=== PATIENT | female | born 1995 | race Caucasian/White ===

== ENCOUNTER 2016-09-25 07:45 | Inpatient (IN) | payer MEDICAID ==
[2016-09-25 11:13] LABS: ABSOLUTE EOSINOPHILS # (AUTO) 0.2 10^3/uL (0.0-0.6); ABSOLUTE LYMPHOCYTES (AUTO) 2.2 10^3/uL (0.5-4.7); ABSOLUTE MONOCYTES (AUTO) 1.1 10^3/uL (0.1-1.4); ABSOLUTE NEUT (AUTO) 7.7 10^3/uL (1.7-8.2); BASOPHILS % (AUTO) 0.4 % (0-2); EOSINOPHILS % (AUTO) 1.5 % (0-6); HEMATOCRIT 33.6 % (36.0-47.0); HEMOGLOBIN 11.7 g/dL (12.0-15.5); HGB HCT DIFFERENCE 1.5; LYMPHOCYTES % (AUTO) 19.7 % (13-45); MEAN CORPUSCULAR HEMOGLOBIN 29.2 pg (27.0-33.4); MEAN CORPUSCULAR HGB CONC 34.7 g/dL (32.0-36.0); MEAN CORPUSCULAR VOLUME 84 fl (80-97); MONOCYTES % (AUTO) 9.8 % (3-13); RED BLOOD COUNT 3.99 10^6/uL (3.72-5.28); RED CELL DISTRIBUTION WIDTH 14.3 % (11.5-14.0); SEGMENTED NEUTROPHILS % (AUTO) 68.6 % (42-78); WHITE BLOOD COUNT 11.2 10^3/uL (4.0-10.5)
[2016-09-25 11:21] LABS: APPEARANCE,URINE SLIGHTLY-CLOUDY; BILIRUBIN,URINE NEGATIVE (NEGATIVE); GLUCOSE, URINE NEGATIVE (NEGATIVE); KETONES,URINE NEGATIVE (NEGATIVE); LEUKOCYTE ESTERASE,URINE LARGE (NEGATIVE); NITRITE,URINE NEGATIVE (NEGATIVE); PROTEIN,URINE NEGATIVE (NEGATIVE); URINE SPECIFIC GRAVITY 1.018; UROBILINOGEN,URINE NEGATIVE mg/dL (<2.0)
[2016-09-25 11:32] LABS: URINE BARBITURATES SCREEN NEGATIVE; URINE METHADONE SCREEN NEGATIVE; URINE OPIATES LOW NEGATIVE; URINE PHENCYCLIDINE SCREEN NEGATIVE
[2016-09-30] MEDS ORDERED: LIDOCAINE 0.5% INJ-PF (5 MG/ML) 50 ML SDV SUBCUT PRN (05:00)
[2016-09-30] MEDS ORDERED: RINGERS SOLUTION,LACTATED 1,000 ML IV PRN ×2 (05:00→13:18)
[2016-09-30] MEDS ORDERED: RINGERS SOLUTION,LACTATED 1,500 ML IV PRN (05:00)
[2016-09-30] MEDS ORDERED: CEFAZOLIN 1 GM/D5W RTU 1 GM/50 ML RTUPB IV PRN (05:00)
[2016-09-30] MEDS ORDERED: CEFAZOLIN 1 GM/D5W RTU 0 GM/0 ML RTUPB IV ONE (08:01)
[2016-09-30] MEDS ORDERED: CLINDAMYCIN 900 MG/D5W RTU 50 ML IV PRN (08:40)
[2016-09-30] MEDS ORDERED: MIDAZOLAM 2 MG/2 ML INJ ONE (09:06)
[2016-09-30] MEDS ORDERED: EPHEDRINE SULFATE INJ 50 MG/1 ML AMPULE ONE (09:06)
[2016-09-30] MEDS ORDERED: OXYTOCIN/NORMAL SALINE 20 UNIT/1,000 ML RTUINJ ONE (09:06)
[2016-09-30] MEDS ORDERED: OXYTOCIN 10 UNIT/ML VIAL ONE (09:06)
[2016-09-30] MEDS ORDERED: FENTANYL CITRATE INJ/PF 100 MCG/2 ML AMPUL IV PRN ×3 (09:50)
[2016-09-30] MEDS ORDERED: MEPERIDINE HCL/PF INJ 25 MG/1 ML DISP.SYRIN IV PRN (09:50)
[2016-09-30] MEDS ORDERED: DIPHENHYDRAMINE HCL 50 MG/ML VIAL IV PRN (09:50)
[2016-09-30] MEDS ORDERED: OXYCODONE-ACETAMINOPHEN 5-325 MG TABLET PO PRN ×3 (09:50→13:18)
[2016-09-30] MEDS ORDERED: MORPHINE SULFATE 10 MG/ML INJ IV PRN (09:50)
[2016-09-30] MEDS ORDERED: PROMETHAZINE HCL INJ 25 MG/1 ML VIAL IV PRN ×3 (09:50→13:18)
[2016-09-30] MEDS ORDERED: ONDANSETRON HCL INJ/PF 4 MG/2 ML SDV IV PRN (09:50)
[2016-09-30] MEDS ORDERED: INFLUENZA ADLT QUAD (36MOS+) 2016-17 VAC 0.5 ML SYR IM PRN (10:08)
[2016-09-30] MEDS: FENTANYL CITRATE INJ/PF 100 MCG/2 ML AMPUL ONE ×2 (11:12→11:30)
[2016-09-30] MEDS ORDERED: KETOROLAC TROMETHAMINE INJ/PF 30 MG/1 ML SDV ONE (12:10)
[2016-09-30] MEDS ORDERED: ACETAMINOPHEN 100 ML IV ONE (12:14)
[2016-09-30] MEDS ORDERED: HYDROMORPHONE HCL INJ/PF 2 MG/ML AMPULE IV PRN (13:18)
[2016-09-30] MEDS ORDERED: OXYTOCIN/NORMAL SALINE 1,000 ML IV PRN (13:18)
[2016-09-30] MEDS ORDERED: SIMETHICONE 80 MG TAB.CHEW PO PRN (13:18)
[2016-09-30] MEDS ORDERED: DIPH/PERTUSS(ACELL)/TETANUS VAC/PF 0.5 ML SYR (>=10YO) IM PRN (13:18)
[2016-09-30] MEDS ORDERED: MEASLES,MUMPS&RUBELLA VACC/PF 0.5 ML VIAL SUBCUT PRN (13:18)
[2016-09-30] MEDS ORDERED: ACETAMINOPHEN 325 MG TABLET PO PRN (13:18)
[2016-09-30] MEDS ORDERED: OXYCODONE-ACETAMINOPHEN 5-325 MG TABLET ONE (13:34)
[2016-09-30] MEDS ORDERED: KETOROLAC TROMETHAMINE INJ/PF 30 MG/1 ML SDV IV SCH ×2 (14:00→22:00)
[2016-09-30] MEDS ORDERED: KETOROLAC TROMETHAMINE 60 MG/2 ML SDV ONE (15:01)
[2016-09-30] MEDS ORDERED: ONDANSETRON HCL INJ/PF 4 MG/2 ML SDV ONE ×2 (15:01)
[2016-09-30] MEDS: DOCUSATE SODIUM 100 MG CAPSULE PO SCH (17:49)
[2016-09-30] MEDS: OXYCODONE-ACETAMINOPHEN 5-325 MG TABLET PO PRN (20:26)
[2016-10-01] MEDS: IBUPROFEN 800 MG TABLET PO SCH ×4 (00:03→17:15)
[2016-10-01] MEDS: OXYCODONE-ACETAMINOPHEN 5-325 MG TABLET PO PRN (02:22)
[2016-10-01 07:56] LABS: HEMATOCRIT 29.9 % (36.0-47.0); HEMOGLOBIN 10.2 g/dL (12.0-15.5); HGB HCT DIFFERENCE 0.7; MEAN CORPUSCULAR HEMOGLOBIN 28.9 pg (27.0-33.4); MEAN CORPUSCULAR HGB CONC 34.2 g/dL (32.0-36.0); MEAN CORPUSCULAR VOLUME 84 fl (80-97); RED BLOOD COUNT 3.55 10^6/uL (3.72-5.28); RED CELL DISTRIBUTION WIDTH 14.5 % (11.5-14.0); WHITE BLOOD COUNT 12.7 10^3/uL (4.0-10.5)
[2016-10-01] MEDS: DOCUSATE SODIUM 100 MG CAPSULE PO SCH ×2 (10:14→17:16)
[2016-10-01] MEDS: PRENATAL VITAMIN W-O CA NO5/FE FUMARATE/FA CAPSULE PO SCH (10:14)
--- NOTE | 2016-10-01 16:09 | PDOC PROGRESS REPORT ---
Subjective-OB Subjective: Post Delivery Day: 21 year old. Denies any needs at this time pt sitting up reports well incision dry and intact abdomen soft and nontender pt reports swelling around incision- encouraged pt to wear a binder and increase ambulation +flatus - bm learning verbalized anticipate d/c in AM Physical Exam (OB) Vital Signs: Temp Pulse Resp BP Pulse Ox 98.1 F 79 16 121/66 99 10/01/16 15:50 10/01/16 15:50 10/01/16 15:50 10/01/16 15:50 10/01/16 15:50 Intake & Output 09/30/16 10/01/16 10/02/16 06:59 06:59 06:59 Intake Total 06720 1100 Output Total 2235 Balance 42298 1100 - Dressing Removed: Yes - medipore dressing removed, linn, no redness, drainage or swelling Incision: Well Approximated Closure Type: Surgical Glue - Bilateral Tubal Ligation Dressing Removed: No - medipore dressing intact - Lochia Lochia Amount: Scant < 10 ml Lochia Color: Rubra/Red - Abdomen Description: Tender, Soft Hernia Present: No Fundal Description: Firm, Midline Fundal Height: u/u - u/2 Objective-Diagnostic Laboratory: 10/01/16 07:28 10/01/16 07:28 WBC 12.7 H RBC 3.55 L Hgb 10.2 L Hct 29.9 L MCV 84 MCH 28.9 MCHC 34.2 RDW 14.5 H Plt Count 209
[2016-10-02] MEDS: IBUPROFEN 800 MG TABLET PO SCH ×3 (00:14→11:10)
--- NOTE | 2016-10-02 09:32 | PDOC PROGRESS REPORT ---
Subjective-OB Subjective: Post Delivery Day: 21 year old. Denies any needs at this time. Ready to go home. Physical Exam (OB) Vital Signs: Temp Pulse Resp BP Pulse Ox 98.3 F 83 20 106/49 L 94 10/02/16 08:06 10/02/16 08:06 10/02/16 08:06 10/02/16 08:06 10/02/16 08:06 Intake & Output 10/01/16 10/02/16 10/03/16 06:59 06:59 06:59 Intake Total 32628 1800 500 Output Total 2235 Balance 03019 1800 500 - Dressing Removed: No - dermabond open to air, no drainage, swelling or redness Incision: Well Approximated Closure Type: Surgical Glue - Bilateral Tubal Ligation Dressing Removed: Yes - Lochia Lochia Amount: Scant < 10 ml Lochia Color: Rubra/Red - Abdomen Description: Tender, Soft Hernia Present: No Bowel Sounds: Normoactive Flatus Presence: Present Stool: No Fundal Description: Firm, Midline Fundal Height: u/u - u/2 Objective-Diagnostic Laboratory: 10/01/16 07:28
--- NOTE | 2016-10-02 09:41 | PDOC DISCHARGE SUMMARY ---
Final Diagnosis Discharge Date: 10/02/16 - Final Diagnosis (1) Bicornuate uterus during , delivered, current hospitalization Is this a current diagnosis for this admission?: Yes (2) Delivery by elective caesarean section Is this a current diagnosis for this admission?: Yes (3) Obesity affecting Is this a current diagnosis for this admission?: Yes (4) Is this a current diagnosis for this admission?: Yes (5) UTI (urinary tract infection) during Is this a current diagnosis for this admission?: Yes Discharge Data - Discharge Medication Home Medications: Prenat Vit Comb.10/Iron/FA/Dha [Pnv-Ob with Dha Combo Pack] 1 each PO DAILY 11/15 Docusate Sodium [Colace 100 mg Capsule] 100 mg PO BID #30 capsule 10/02/16 Ferrous Sulfate 325 mg PO DAILY #30 tablet. 10/02/16 Ibuprofen [Motrin 800 mg Tablet] 800 mg PO Q6 #30 tablet 10/02/16 Oxycodone HCl/Acetaminophen [Percocet 5-325 mg Tablet] 1 tab PO Q4HP PRN #20 tablet 10/02/16 Gestational Age: 39 wks Reason(s) for Admission: Ceasarean Section-Repeat Procedures: Ultrasound Intrapartum Procedure(s): : Low Cervical, Transverse - Data Baby 1 Female at 1 minute: 9 at 5 minutes: 9 Weight: 8.9 kg Home with Mother: Yes Complications: No - Diagnosis Test Laboratory: Temp Pulse Resp BP Pulse Ox 98.3 F 83 20 106/49 L 94 10/02/16 08:06 10/02/16 08:06 10/02/16 08:06 10/02/16 08:06 10/02/16 08:06 09/25/16 09/25/16 10/01/16 10:15 10:24 07:28 RBC 3.99 3.55 L Hgb 11.7 L 10.2 L Hct 33.6 L 29.9 L Urine Opiates Screen NEGATIVE - Discharge information/Instructions Discharge Activity: Activity As Tolerated, Balance Activity w/Rest, No Driving, No Lifting Over 10 Pounds, No Lifting/Push/Pulling, Pelvic Rest, Slowly Increase Activity, No tub bath Discharge Diet: Regular Disposition: HOME, SELF-CARE Follow up with: [facility] in: 1, Weeks
[2016-10-02] MEDS: DOCUSATE SODIUM 100 MG CAPSULE PO SCH (09:43)
[2016-10-02] MEDS: PRENATAL VITAMIN W-O CA NO5/FE FUMARATE/FA CAPSULE PO SCH (09:44)
[2016-10-02 11:40] VITALS: BP 122/63
[2016-10-02] MEDS ORDERED: INFLUENZA ADLT QUAD (36MOS+) 2016-17 VAC 0.5 ML SYR IM ONE (12:45)
--- NOTE | 2016-11-04 11:43 | Operative Report ---
Operative Report DATE OF SURGERY: 09/30/16 PREOPERATIVE DIAGNOSIS: 39week , previous section, bicornuate uterus POSTOPERATIVE DIAGNOSIS: same, delivered OPERATION: Repeat Low Transverse Cesaraean Section SURGEON: TAYO SIMMONS ANESTHESIA: Spinal TISSUE REMOVED OR ALTERED: placenta COMPLICATIONS: none ESTIMATED BLOOD LOSS: 500cc INTRAOPERATIVE FINDINGS: viable female infant weight 8lb,9oz with Apgars 8/9. intact placenta with 3vc. bicornuate uterus, normal ovaries and tubes PROCEDURE: After appropriate consents had been obtained, the patient was taken to the operating room where regional anesthesia was placed without difficulty. The patient was prepped and draped in the normal sterile fashion in the dorsal supine position with a leftward tilt. Time out procedure was performed. Anesthesia was determined to be adequate and a pfannenstiel incision was made through the prior scar. The fascia was nicked in the midline then extended bilaterally with Mistry scissors. The fascia was elevated and then the rectus muscles dissected off sharply. The rectus muscles were then in the midline and the peritonuem identified. The peritoneum was entered sharply and extended with good visualization of the bladder. Bladder blade was inserted and the bladder flap carefully dissected off the lower uterine segment. A transverse incision was made with the scalpel then extended bilaterally in an upward outward motion across the lower uterine segment. Amniotomy revealed clear fluid. The vertex was grasped but was difficult to bring to the opening due to the fermin from the bicornuate uterus and the high station. A Kiwi vacuum was applied to guide the head to the incision which was then delivered easily through the incision followed by the remainder of the . The cord was doubly clamped and ligated. The infant was handed off the operative field to the waiting pediatric team. The placenta was then extracted manually intact. The uterus was exteriorized and cleansed of membranous tissue with a sponge on the absorption plant operator's hand. The uterine incision was then repaired using 0 vicryl in a running locked fashion. A second layer of the same suture was used to imbricate for hemastasis. The uterus was then returned to the abdomen and gutters were cleared of clots and debris. The fascial incision was closed with 0 vicryl in a running fashion to the midline. The subcutaneous layer was closed with 0 plain in a running stitch. the skin was closed with 4-0 monocryl in subcuticular running stitch. Sponge, lap and needle counts were correct. The patient was transferred to recovery in stable condition.
--- NOTE | 2016-12-11 10:43 | OPERATIVE REPORT E ---
Operative Report NAME: MAXIMUS BARNETT : 1995 AGE: 21Y DATE OF SURGERY: ROOM: 217 SURGEON: TAYO SIMMONS M.D. ADDENDUM: The patient also elected to have a permanent sterilization during her section. Procedure was a bilateral tubal ligation by modified [place] method. The operative note following the closure of the uterine incision: Attention was then turned to the right fallopian tube which was grasped in the mid portion with a Kaye clamp. Window was created in the mesosalpinx with the Bovie; #0 plain ties were placed proximally and distally, and the mid portion of the tube was removed. This procedure was repeated on the left fallopian tube. All areas were noted to be hemostatic. The dictation would then continue with returning the uterus to the abdomen. DICTATING PHYSICIAN: TAYO SIMMONS M.D. [id number] PHY#: [id number] ID: [id number] JOB#: [id number] ACCT: [id number] cc:TAYO SIMMONS M.D. >
== END 2016-10-02 13:03 | disposition home or self-care (01) | DRG 765 ==
LOC: 2S 09-30 06:14
PROVIDERS: ADMIT Obstetrics & Gynecology; ATTEND Obstetrics & Gynecology
PROC: 0UL70CZ Occlusion of Bilateral Fallopian Tubes with Extraluminal Device, Open Approach (ICD-10-PCS; 2016-09-30)
PROC: 3E0234Z Introduction of Serum, Toxoid and Vaccine into Muscle, Percutaneous Approach (ICD-10-PCS; 2016-09-30)
PROC: 4A1HXCZ Monitoring of Products of Conception, Cardiac Rate, External Approach (ICD-10-PCS; 2016-09-30)
PROC: 10D00Z1 Extraction of Products of Conception, Low, Open Approach (ICD-10-PCS; principal; 2016-09-30 09:15)
DX: O65.5 Obstructed labor due to abnormality of maternal pelvic organs (principal); O75.3 Other infection during labor; N39.0 Urinary tract infection, site not specified; O34.03 Maternal care for unspecified congenital malformation of uterus, third trimester; Q51.3 Bicornate uterus; O34.211 Maternal care for low transverse scar from previous cesarean delivery; O99.214 Obesity complicating childbirth; E66.9 Obesity, unspecified; Z68.38 Body mass index [BMI] 38.0-38.9, adult; Z87.891 Personal history of nicotine dependence; Z30.2 Encounter for sterilization; Z23 Encounter for immunization; Z3A.39 39 weeks gestation of pregnancy; Z37.0 Single live birth
CPT/HCPCS: 1961; 36415; 59025; 80307; 81001; 85025; 85027; 86850; 86900; 86901; 88302; 90686; 94799; J0131; J0690; J1170; J1885; J2250; J2405; J2590; J3010; J3490; J7120

== ENCOUNTER 2017-06-25 22:41 | Emergency (ER) | payer MEDICAID ==
--- NOTE | 2017-06-25 23:53 | ER Document Report ---
ED GI/ - General Chief Complaint: Abdominal Pain Stated Complaint: ABDOMINAL PAIN Time Seen by Provider: 06/25/17 23:44 Notes: Patient is a 21-year-old female that comes emergency department for chief complaint of mid to lower abdominal pain, she states that she has not had a period for over 1.5 months and she is worried she is and has an ectopic . She has not taken a home test. Pain comes and goes. She also states that she had a tubal ligation about 6 months ago when she had her previous child, she states that she noticed she was still lactating and she said feels like she is gaining weight so she thought she might be . Denies vaginal bleeding or discharge, denies dysuria, denies fever or chills, denies flank pain. She denies injury. Past medical history of bipolar disorder, recently was started on new medications for this. TRAVEL OUTSIDE OF THE [place] IN LAST 30 DAYS: No - Related Data Allergies/Adverse Reactions: Penicillins Allergy (Severe, Verified 09/25/16 09:55) Respiratory distress gold Adverse Reaction (Mild, Uncoded 09/30/16 07:25) Pruritis, rash Past Medical History - General Information source: Patient - Social History Smoking Status: Never Smoker Frequency of alcohol use: None Drug Abuse: None Lives with: Family Family History: Reviewed & Not Pertinent - Medical History Medical History: Negative Renal/ Medical History: Denies: Hx Kidney Stones Surgical Hx: Negative - Immunizations Immunizations up to date: Yes Hx Diphtheria, Pertussis, Tetanus Vaccination: Yes Review of Systems - Review of Systems Constitutional: No symptoms reported EENT: No symptoms reported Cardiovascular: No symptoms reported Respiratory: No symptoms reported Gastrointestinal: See HPI Genitourinary: See HPI Female Genitourinary: See HPI Musculoskeletal: No symptoms reported Skin: No symptoms reported Hematologic/Lymphatic: No symptoms reported Neurological/Psychological: No symptoms reported Physical Exam - Vital signs Vitals: Temp Pulse Resp BP Pulse Ox 97.7 F 72 18 112/73 100 06/25/17 23:09 06/25/17 23:09 06/25/17 23:09 06/25/17 23:09 06/25/17 23:09 Interpretation: Normal - General General appearance: Appears well, Alert In distress: None - HEENT Head: Normocephalic, Atraumatic Eyes: Normal Conjunctiva: Normal Extraocular movements intact: Yes Eyelashes: Normal Pupils: PERRL Mouth/Lips: Normal Mucous membranes: Normal Pharynx: Normal Neck: Normal - Respiratory Respiratory status: No respiratory distress Chest status: Nontender Breath sounds: Normal. No: Decreased air movement, Wheezing Chest palpation: Normal - Cardiovascular Rhythm: Regular. No: Tachycardia Heart sounds: Normal auscultation, S1 appreciated, S2 appreciated Murmur: No - Abdominal Inspection: Normal Distension: No distension Bowel sounds: Normal Tenderness: Tender - There is some suprapubic tenderness on examination, otherwise unremarkable abdomen, no guarding, rigidity, or rebound tenderness Organomegaly: No organomegaly - Back Back: Normal, Nontender. No: CVA tenderness, Vertebra tenderness - Extremities General upper extremity: Normal inspection, Nontender, Normal color, Normal ROM , Normal temperature General lower extremity: Normal inspection, Nontender, Normal color, Normal ROM , Normal temperature, Normal weight bearing - Neurological Neuro grossly intact: Yes Cognition: Normal Orientation: AAOx4 [place] Coma Scale Eye Opening: Spontaneous [place] Coma Scale Verbal: Oriented [place] Coma Scale Motor: Obeys Commands [place] Coma Scale Total: 15 Speech: Normal Motor strength normal: LUE, RUE, LLE, RLE Sensory: Normal - Psychological Associated symptoms: Normal affect, Normal mood - Skin Skin Temperature: Warm Skin Moisture: Dry Skin Color: Normal Course - Re-evaluation Re-evalutation: Patient has suprapubic tenderness on examination, remaining abdomen is completely benign, no guarding, no suggestion of acute abdomen. CBC, chemistry unremarkable. test is negative. Patient has a lot of questions about her negative . She has a tubal ligation. Treating with Eliecerro, discussed follow-up, patient states that she has a follow- up in a few days with her psychiatrist to discuss her dosing for her medications , discussed return precautions, patient and significant other state understanding and agreement. - Vital Signs Vital signs: Temp Pulse Resp BP Pulse Ox 97.3 F 66 17 94/59 L 96 06/26/17 02:00 06/26/17 02:00 06/26/17 02:00 06/26/17 02:00 06/26/17 02:00 - Laboratory Result Diagrams: 06/26/17 00:10 06/26/17 00:10 Laboratory results interpreted by me: 06/26/17 06/26/17 00:10 00:10 RDW 15.6 H Eosinophils % 6.9 H Urine Nitrite POSITIVE H Ur Leukocyte Esterase SMALL H Discharge - Discharge Clinical Impression: Lower abdominal pain Condition: Stable Disposition: HOME, SELF-CARE Additional Instructions: Your test is negative. Follow-up with your provider for additional adjustments of your medications. Your workup indicates a bladder infection, take the antibiotic as prescribed to completion. Return for any concerning or worsening symptoms including fever, vomiting, worsening abdominal pain, or any other concerning symptoms. Prescriptions: Ciprofloxacin HCl [Cipro 500 mg Tablet] 500 mg PO BID #10 tablet
[2017-06-26 00:31] LABS: ABSOLUTE BASOPHILS # (AUTO) 0.1 10^3/uL (0.0-0.2); ABSOLUTE EOSINOPHILS # (AUTO) 0.6 10^3/uL (0.0-0.6); ABSOLUTE LYMPHOCYTES (AUTO) 3.5 10^3/uL (0.5-4.7); ABSOLUTE MONOCYTES (AUTO) 0.8 10^3/uL (0.1-1.4); BASOPHILS % (AUTO) 0.8 % (0-2); EOSINOPHILS % (AUTO) 6.9 % (0-6); HEMATOCRIT 39.4 % (36.0-47.0); HEMOGLOBIN 13.7 g/dL (12.0-15.5); HGB HCT DIFFERENCE 1.7; LYMPHOCYTES % (AUTO) 38.9 % (13-45); MEAN CORPUSCULAR HEMOGLOBIN 29.1 pg (27.0-33.4); MEAN CORPUSCULAR HGB CONC 34.7 g/dL (32.0-36.0); MEAN CORPUSCULAR VOLUME 84 fl (80-97); MONOCYTES % (AUTO) 8.8 % (3-13); RED CELL DISTRIBUTION WIDTH 15.6 % (11.5-14.0); SEGMENTED NEUTROPHILS % (AUTO) 44.6 % (42-78); WHITE BLOOD COUNT 8.9 10^3/uL (4.0-10.5)
[2017-06-26 00:43] LABS: AMORPHOUS SEDIMENT,URINE TRACE /HPF; APPEARANCE,URINE SLIGHTLY-CLOUDY; BILIRUBIN,URINE NEGATIVE (NEGATIVE); GLUCOSE, URINE NEGATIVE (NEGATIVE); KETONES,URINE NEGATIVE (NEGATIVE); LEUKOCYTE ESTERASE,URINE SMALL (NEGATIVE); NITRITE,URINE POSITIVE (NEGATIVE); PROTEIN,URINE NEGATIVE (NEGATIVE); URINE SPECIFIC GRAVITY 1.015; UROBILINOGEN,URINE NEGATIVE mg/dL (<2.0)
[2017-06-26 00:44] LABS: ALANINE AMINOTRANSFERASE 48 U/L (9-52); ALBUMIN 4.3 g/dL (3.5-5.0); ALKALINE PHOSPHATASE 77 U/L (38-126); ANION GAP 12 (5-19); ASPARTATE AMINO TRANSFERASE 22 U/L (14-36); BILIRUBIN,DIRECT 0.3 mg/dL (0.0-0.4); BILIRUBIN,TOTAL 0.3 mg/dL (0.2-1.3); BLOOD UREA NITROGEN 12 mg/dL (7-20); CALCIUM 9.6 mg/dL (8.4-10.2); CARBON DIOXIDE 25 mmol/L (22-30); CHLORIDE 104 mmol/L (98-107); CREATININE RESULT 0.65 mg/dL (0.52-1.25); GLUCOSE 94 mg/dL (75-110); POTASSIUM 4.1 mmol/L (3.6-5.0); SODIUM 141.3 mmol/L (137-145); TOTAL PROTEIN 7.1 g/dL (6.3-8.2)
[2017-06-26] MEDS ORDERED: CIPROFLOXACIN HCL 500 MG TABLET PO ONE (01:45)
[2017-06-26 02:13] VITALS: BP 94/59
== END 2017-06-26 02:05 | disposition home or self-care (01) ==
LOC: ER 22:41
DX: R10.30 Lower abdominal pain, unspecified (principal); R63.5 Abnormal weight gain; Z68.37 Body mass index [BMI] 37.0-37.9, adult; F31.9 Bipolar disorder, unspecified; Z98.51 Tubal ligation status; Z87.442 Personal history of urinary calculi; Z88.0 Allergy status to penicillin; Z32.02 Encounter for pregnancy test, result negative
CPT/HCPCS: 36415; 80053; 81001; 81025; 85025; 99284

== ENCOUNTER 2018-03-17 20:43 | Emergency (ER) | payer SELFPAY ==
[2018-03-17] MEDS ORDERED: NORMAL SALINE 500 ML IV ONE (21:01)
--- NOTE | 2018-03-17 21:01 | ER Document Report ---
ED Medical Screen (RME) - General Chief Complaint: Abdominal Pain Stated Complaint: CHEST PAIN Time Seen by Provider: 03/17/18 20:57 Mode of Arrival: Ambulatory Information source: Patient Notes: Patient complained of chest pain and epigastric pain which has been going on for a month. Denies any nausea vomiting or diarrhea. Also complained of shortness of breath. I have greeted and performed a rapid initial assessment of this patient. A comprehensive ED assessment and evaluation of the patient, analysis of test results and completion of the medical decision making process will be conducted by additional ED providers. TRAVEL OUTSIDE OF THE [place] IN LAST 30 DAYS: No - Related Data Allergies/Adverse Reactions: Penicillins Allergy (Severe, Verified 03/17/18 20:46) Respiratory distress gold Adverse Reaction (Mild, Uncoded 03/17/18 20:46) Pruritis, rash Past Medical History Renal/ Medical History: Denies: Hx Kidney Stones, Hx Peritoneal Dialysis - Immunizations Immunizations up to date: Yes Hx Diphtheria, Pertussis, Tetanus Vaccination: Yes Physical Exam - Vital signs Vitals: Temp Pulse Resp BP Pulse Ox 97.4 F 88 15 110/72 99 03/17/18 20:48 03/17/18 20:48 03/17/18 20:48 03/17/18 20:48 03/17/18 20:48 Course - Vital Signs Vital signs: Temp Pulse Resp BP Pulse Ox 97.4 F 88 15 110/72 99 03/17/18 20:48 03/17/18 20:48 03/17/18 20:48 03/17/18 20:48 03/17/18 20:48
[2018-03-17] MEDS ORDERED: ASPIRIN 81 MG TABLET, CHEWABLE PO ONE (21:03)
[2018-03-17 21:33] LABS: ABSOLUTE BASOPHILS # (AUTO) 0.1 10^3/uL (0.0-0.2); ABSOLUTE EOSINOPHILS # (AUTO) 0.3 10^3/uL (0.0-0.6); ABSOLUTE LYMPHOCYTES (AUTO) 2.3 10^3/uL (0.5-4.7); ABSOLUTE MONOCYTES (AUTO) 0.6 10^3/uL (0.1-1.4); ABSOLUTE NEUT (AUTO) 4.4 10^3/uL (1.7-8.2); BASOPHILS % (AUTO) 0.7 % (0-2); HEMATOCRIT 42.1 % (36.0-47.0); HEMOGLOBIN 14.4 g/dL (12.0-15.5); LYMPHOCYTES % (AUTO) 30.1 % (13-45); MEAN CORPUSCULAR HEMOGLOBIN 29.3 pg (27.0-33.4); MEAN CORPUSCULAR HGB CONC 34.1 g/dL (32.0-36.0); MEAN CORPUSCULAR VOLUME 86 fl (80-97); PLATELET COUNT 255 10^3/uL (150-450); RED CELL DISTRIBUTION WIDTH 14.8 % (11.5-14.0); SEGMENTED NEUTROPHILS % (AUTO) 57.2 % (42-78); TOTAL CELLS COUNTED % (AUTO) 100 %; WHITE BLOOD COUNT 7.8 10^3/uL (4.0-10.5)
[2018-03-17 21:51] LABS: ALANINE AMINOTRANSFERASE 294 U/L (9-52); ALBUMIN 4.4 g/dL (3.5-5.0); ALKALINE PHOSPHATASE 208 U/L (38-126); ANION GAP 9 (5-19); ASPARTATE AMINO TRANSFERASE 365 U/L (14-36); BILIRUBIN,DIRECT 0.8 mg/dL (0.0-0.4); BLOOD UREA NITROGEN 13 mg/dL (7-20); CALCIUM 9.6 mg/dL (8.4-10.2); CARBON DIOXIDE 27 mmol/L (22-30); CHLORIDE 107 mmol/L (98-107); GLUCOSE 95 mg/dL (75-110); LIPASE 93.3 U/L (23-300); POTASSIUM 4.5 mmol/L (3.6-5.0); SODIUM 142.9 mmol/L (137-145); TOTAL PROTEIN 7.9 g/dL (6.3-8.2)
--- NOTE | 2018-03-17 22:15 | RADIOLOGY REPORT (SQ) ---
XR CHEST 2 VIEWS HISTORY: Chest pain. COMPARISON: None. FINDINGS/IMPRESSION: Normal cardiomediastinal contours. Lungs are clear. No pleural effusion or pneumothorax is seen. No acute osseous findings.
[2018-03-17] MEDS ORDERED: KETOROLAC TROMETHAMINE INJ/PF 30 MG/1 ML SDV IV ONE (23:45)
[2018-03-17] MEDS ORDERED: ONDANSETRON HCL INJ/PF 4 MG/2 ML SDV IV ONE (23:45)
[2018-03-17 23:50] LABS: AMORPHOUS SEDIMENT,URINE TRACE /HPF; APPEARANCE,URINE CLOUDY; BILIRUBIN,URINE SMALL (NEGATIVE); GLUCOSE, URINE NEGATIVE (NEGATIVE); KETONES,URINE NEGATIVE (NEGATIVE); LEUKOCYTE ESTERASE,URINE TRACE (NEGATIVE); NITRITE,URINE NEGATIVE (NEGATIVE); PROTEIN,URINE NEGATIVE (NEGATIVE); URINE SPECIFIC GRAVITY 1.024
[2018-03-17 23:51] LABS: COLOR,URINE YELLOW
--- NOTE | 2018-03-18 00:16 | ER Document Report ---
ED General - General Chief Complaint: Abdominal Pain Stated Complaint: CHEST PAIN Time Seen by Provider: 03/17/18 20:57 Mode of Arrival: Ambulatory Notes: Patient is a 22-year-old female without chronic medical history beyond morbid obesity who presents with complaints of 2 months of intermittent chest discomfort. Patient describes this as an intermittent, stabbing pain to her upper abdomen that occur spontaneously and resolve spontaneously. She reports that this occurs 2-3 times daily and last approximately 20-30 seconds each time. Nothing seems to prompt the symptoms and they do resolve spontaneously. She denies any associated nausea, vomiting or diarrhea pheresis. She has no known cardiac history. No shortness of breath. No history of DVT or pulmonary embolus. She has not used any form of estrogen. She denies alcohol use. She has not discussed with her primary care doctor. TRAVEL OUTSIDE OF THE [place] IN LAST 30 DAYS: No - Related Data Allergies/Adverse Reactions: Penicillins Allergy (Severe, Verified 03/17/18 20:46) Respiratory distress gold Adverse Reaction (Mild, Uncoded 03/17/18 20:46) Pruritis, rash Past Medical History - General Information source: Patient - Social History Smoking Status: Current Every Day Smoker Frequency of alcohol use: None Drug Abuse: None Lives with: Spouse/Significant other Family History: Reviewed & Not Pertinent Patient has suicidal ideation: No Patient has homicidal ideation: No Renal/ Medical History: Denies: Hx Kidney Stones, Hx Peritoneal Dialysis Past Surgical History: Reports: Hx Section - x2, Hx Tubal Ligation - Immunizations Immunizations up to date: Yes Hx Diphtheria, Pertussis, Tetanus Vaccination: Yes Review of Systems - Review of Systems Notes: Constitutional: Negative for fever. HENT: Negative for sore throat. Eyes: Negative for visual changes. Cardiovascular: Negative for chest pain. Respiratory: Negative for shortness of breath. Gastrointestinal: Positive for intermittent epigastric abdominal pain Genitourinary: Negative for dysuria. Musculoskeletal: Negative for back pain. Skin: Negative for rash. Neurological: Negative for headaches, weakness or numbness. 10 point ROS negative except as marked above and in HPI. Physical Exam - Vital signs Vitals: Temp Pulse Resp BP Pulse Ox 97.4 F 88 15 110/72 99 03/17/18 20:48 03/17/18 20:48 03/17/18 20:48 03/17/18 20:48 03/17/18 20:48 Interpretation: Normal Notes: PHYSICAL EXAMINATION: GENERAL: Well-appearing, well-nourished and in no acute distress. HEAD: Atraumatic, normocephalic. EYES: Pupils equal round and reactive to light, extraocular movements intact, sclera anicteric, conjunctiva are normal. ENT: nares patent, oropharynx clear without exudates. Moist mucous membranes. NECK: Normal range of motion, supple without lymphadenopathy LUNGS: Breath sounds clear to auscultation bilaterally and equal. No wheezes rales or rhonchi. HEART: Regular rate and rhythm without murmurs ABDOMEN: Soft, nontender, normoactive bowel sounds. No guarding, no rebound. No masses appreciated. EXTREMITIES: Normal range of motion, no pitting or edema. No cyanosis. NEUROLOGICAL: No focal neurological deficits. Moves all extremities spontaneously and on command. PSYCH: Normal mood, normal affect. SKIN: Warm, Dry, normal turgor, no rashes or lesions noted. Course - Re-evaluation Re-evalutation: 03/18/18 00:15 Patient presents with epigastric abdominal pain with associated reflux symptoms most consistent with likely gastritis. Patient has no focal abdominal tenderness on examination. Right upper quadrant ultrasound does not demonstrate any evidence of acute cholecystitis or cholelithiasis. Lipase is normal. Patient does have a transaminitis but this appears to be likely related to a non-alcoholic steatohepatosis. I have informed the patient of this incidental finding, provided her a copy of her labs, and her ultrasound report. Based on history and exam, I do not suspect ACS, pulmonary embolus, SBO , mesenteric ischemia, acute pancreatitis, biliary pathology, or an abdominal aortic dissection. I have instructed the patient that she will need to follow- up regarding her abnormal liver function tests but I do not believe there is any additional emergent testing that needs to be completed at this time. Will discharge with return precautions and follow-up recommendations. Verbal discharge instructions given a the bedside and opportunity for questions given. Medication warnings reviewed. Patient is in agreement with this plan and has verbalized understanding of return precautions and the need for primary care follow-up in the next 24-72 hours. - Vital Signs Vital signs: Temp Pulse Resp BP Pulse Ox 97.4 F 88 15 110/72 99 03/17/18 20:48 03/17/18 20:48 03/17/18 20:48 03/17/18 20:48 03/17/18 20:48 - Laboratory Result Diagrams: 03/17/18 21:20 03/17/18 21:20 Laboratory results interpreted by me: 03/17/18 03/17/18 03/17/18 21:20 21:20 23:00 RDW 14.8 H Direct Bilirubin 0.8 H AST 365 H ALT 294 H Alkaline Phosphatase 208 H Urine Bilirubin SMALL H Urine Urobilinogen 4.0 H Ur Leukocyte Esterase TRACE H - Diagnostic Test Radiology reviewed: Image reviewed, Reports reviewed Radiology results interpreted by me: 03/18/18 00:15 Chest x-ray: No acute infiltrate or pneumothorax - EKG Interpretation by Me Additional EKG results interpreted by me: 03/18/18 00:15 Sinus rhythm. Rate 67. No ST elevations or depressions. QTC is 444. Discharge - Discharge Clinical Impression: Transaminitis, Hepatomegaly, Intermittent chest pain Condition: Good Disposition: HOME, SELF-CARE Additional Instructions: Your symptoms appear to be most consistent with stomach or upper intestinal irritation. Please begin taking famotidine 40 mg in the morning and 40 mg at night. This medicine can be purchased directly [id number]. You may also take medicine such as Pepto-Bismol or Tums to assist with your pain. Please return to emergency department immediately if you have worsening of your pain, shortness of breath, vomiting, become unable to exert yourself due to pain or difficulty breathing, you pass out, or have any pain that radiates into your arms, jaw, or back. Please also return if you have any additional symptoms that are concerning to you. As we have discussed, the most important thing is lifestyle changes. You need to avoid smoking, sodas, tea, coffee, alcohol, spicy foods, and acidic foods such as citrus fruits, tomato based products, berries, and most fruit juices. As we discussed today, your liver functions are not normal. The exact cause of this is uncertain and requires additional follow-up with your primary care doctor. You have been provided a copy of her labs today as well as her ultrasound report.
--- NOTE | 2018-03-18 01:22 | RADIOLOGY REPORT (SQ) ---
US ABDOMEN LIMITED HISTORY: Epigastric pain for one month.. COMPARISON: None. TECHNIQUE: Grayscale and color Doppler imaging of the right upper quadrant was performed. FINDINGS: Liver is enlarged, measuring 17.8 cm. Normal liver echogenicity. No perihepatic ascites is seen. Multiple shadowing gallstones are present. No pericholecystic fluid or gallbladder wall thickening. Common bile duct measures 10 mm. No intrahepatic biliary ductal dilatation. Visualized pancreas is unremarkable. Right kidney measures 14.3 cm in length, without hydronephrosis. Punctate focus in the upper pole which may represent a calcification. Visualized portions of the IVC and aorta are patent. IMPRESSION: Cholelithiasis without evidence of acute cholecystitis. Possible nonobstructing punctate renal stone. Consider CT scan for complete evaluation. Hepatomegaly.
[2018-03-18] MEDS ORDERED: METOCLOPRAMIDE HCL ORAL SOLN 10 MG/10 ML UDCUP PO ONE (01:35)
[2018-03-18] MEDS ORDERED: MAG HYDROX/AL HYDROX/SIMETH SUSP 30 ML UDCUP PO ONE (01:35)
[2018-03-18] MEDS ORDERED: LIDOCAINE 2% VISCOUS SOLN 20 ML UDCUP PO ONE (01:35)
[2018-03-18] MEDS ORDERED: FAMOTIDINE 20 MG TABLET PO ONE (01:35)
[2018-03-18 02:03] VITALS: BP 112/57
--- NOTE | 2018-03-18 09:26 | EKG REPORT ---
SEVERITY:- BORDERLINE ECG - SINUS RHYTHM INFERIOR Q WAVES, PROBABLY NORMAL VARIATION : Confirmed by: Pedro King 18-Mar-2018 09:25:35
== END 2018-03-18 02:03 | disposition home or self-care (01) ==
LOC: ER 20:43
DX: R07.89 Other chest pain (principal); R74.0 Nonspecific elevation of levels of transaminase and lactic acid dehydrogenase [LDH]; R16.0 Hepatomegaly, not elsewhere classified; F17.200 Nicotine dependence, unspecified, uncomplicated
CPT/HCPCS: 93005; 99285; 96361; 96374; 96375; 36415; 83690; 85025; 81025; 80053; 81001; 84484; 71046; 76705; 93010; J3490; J1885; J2405

== ENCOUNTER 2018-03-20 01:26 | Emergency (ER) | payer SELFPAY ==
[2018-03-20] MEDS ORDERED: FAMOTIDINE 20 MG TABLET PO ONE (01:59)
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
[2018-03-20 02:30] LABS: APPEARANCE,URINE SLIGHTLY-CLOUDY; BILIRUBIN,URINE SMALL (NEGATIVE); COLOR,URINE DARK YELLOW; GLUCOSE, URINE NEGATIVE (NEGATIVE); KETONES,URINE NEGATIVE (NEGATIVE); LEUKOCYTE ESTERASE,URINE NEGATIVE (NEGATIVE); NITRITE,URINE POSITIVE (NEGATIVE); PROTEIN,URINE NEGATIVE (NEGATIVE); URINE SPECIFIC GRAVITY 1.027
[2018-03-20 02:59] LABS: ABSOLUTE BASOPHILS # (AUTO) 0.1 10^3/uL (0.0-0.2); ABSOLUTE EOSINOPHILS # (AUTO) 0.5 10^3/uL (0.0-0.6); ABSOLUTE NEUT (AUTO) 4.4 10^3/uL (1.7-8.2); EOSINOPHILS % (AUTO) 6.1 % (0-6); HEMATOCRIT 41.1 % (36.0-47.0); HEMOGLOBIN 13.9 g/dL (12.0-15.5); LYMPHOCYTES % (AUTO) 25.1 % (13-45); MEAN CORPUSCULAR HEMOGLOBIN 29.2 pg (27.0-33.4); MEAN CORPUSCULAR HGB CONC 33.9 g/dL (32.0-36.0); MEAN CORPUSCULAR VOLUME 86 fl (80-97); MONOCYTES % (AUTO) 12.2 % (3-13); PLATELET COUNT 238 10^3/uL (150-450); RED BLOOD COUNT 4.77 10^6/uL (3.72-5.28); RED CELL DISTRIBUTION WIDTH 14.9 % (11.5-14.0); SEGMENTED NEUTROPHILS % (AUTO) 55.6 % (42-78); TOTAL CELLS COUNTED % (AUTO) 100 %; WHITE BLOOD COUNT 7.9 10^3/uL (4.0-10.5)
[2018-03-20 03:23] LABS: ALANINE AMINOTRANSFERASE 348 U/L (9-52); ALBUMIN 4.2 g/dL (3.5-5.0); ALKALINE PHOSPHATASE 209 U/L (38-126); ANION GAP 8 (5-19); ASPARTATE AMINO TRANSFERASE 142 U/L (14-36); BILIRUBIN,DIRECT 1.6 mg/dL (0.0-0.4); BLOOD UREA NITROGEN 10 mg/dL (7-20); CALCIUM 9.5 mg/dL (8.4-10.2); CARBON DIOXIDE 25 mmol/L (22-30); CHLORIDE 108 mmol/L (98-107); GLUCOSE 101 mg/dL (75-110); LIPASE 61.8 U/L (23-300); POTASSIUM 4.2 mmol/L (3.6-5.0); SODIUM 141.1 mmol/L (137-145); TOTAL PROTEIN 7.2 g/dL (6.3-8.2)
[2018-03-20 03:24] LABS: GAMMA-GLUTAMYL TRANSFERASE 348 U/L (8-78)
[2018-03-20 04:08] LABS: URINE AMPHETAMINES SCREEN NEGATIVE; URINE BARBITURATES SCREEN NEGATIVE; URINE BENZODIAZEPINES SCREEN NEGATIVE; URINE COCAINE SCREEN NEGATIVE; URINE MARIJUANA (THC) SCREEN NEGATIVE; URINE METHADONE SCREEN NEGATIVE
[2018-03-20 04:12] LABS: URINE PHENCYCLIDINE SCREEN NEGATIVE
[2018-03-20] MEDS ORDERED: MORPHINE SULFATE 10 MG/ML INJ IV ONE (04:55)
[2018-03-20] MEDS ORDERED: ONDANSETRON 4 MG TAB.RAPDIS PO ONE (04:56)
[2018-03-20] MEDS ORDERED: RINGERS SOLUTION,LACTATED 1,000 ML IV ONE (04:56)
--- NOTE | 2018-03-20 06:10 | RADIOLOGY REPORT (SQ) ---
CLINICAL DATA: 22-year-old female with increasing abdominal pain and increasing LFTs. TECHNICAL DATA: Limited sonographic imaging of the right upper quadrant was performed on 03/20/2018 at 5:23 AM. Comparison: Prior abdominal ultrasound performed on 03/18/2018. FINDINGS: The liver is top normal in size and is normal in configuration. The liver demonstrates increased echogenicity which is commonly seen with fatty infiltration. No focal hepatic abnormalities are identified. Doppler imaging reveals patency of the portal vein and normal hepatopedal flow. The gallbladder is well distended and contains multiple shadowing echogenic foci consistent with gallstones. The gallbladder wall measures 2.5 mm in diameter. No sonographic Turpin sign was detected by the technologist. There is no pericholecystic fluid. There is dilatation of the common bile duct which measures 9 mm in diameter. No dianne choledocholithiasis is appreciated on this examination. The right kidney is normal in size, shape and echogenicity without hydronephrosis. There is a punctate focus of increased echogenicity within the right kidney possibly representing a nonobstructing calculus The right kidney measures 13.6 x 3.7 x 5.6. There is no evidence of free fluid in the abdomen. The head and body of the pancreas are grossly normal in size and echogenicity. The tail of the pancreas is obscured by bowel gas. The aorta and inferior vena cava are grossly unremarkable. IMPRESSION: 1. Cholelithiasis without evidence of gallbladder wall thickening, pericholecystic fluid or definite sonographic Turpin sign. However, there is mild dilatation of the common bile duct which measures approximately 9 mm without dianne choledocholithiasis. 2. Suspect punctate nonobstructing right renal calculus.
[2018-03-20] MEDS: CEFTRIAXONE SODIUM 1,000 MG in NORMAL SALINE 50 ML IV SCH (09:45)
[2018-03-20] MEDS ORDERED: CEFTRIAXONE 1 GM/D5W RTU 1 GM/50 ML RTUPB IV SCH (10:00)
[2018-03-20] MEDS ORDERED: NORMAL SALINE 1000 ML 1,000 ML IV ONE (11:53)
[2018-03-20 12:42] LABS: ABSOLUTE EOSINOPHILS # (AUTO) 0.4 10^3/uL (0.0-0.6); ABSOLUTE LYMPHOCYTES (AUTO) 1.9 10^3/uL (0.5-4.7); ABSOLUTE MONOCYTES (AUTO) 0.8 10^3/uL (0.1-1.4); ABSOLUTE NEUT (AUTO) 3.5 10^3/uL (1.7-8.2); BASOPHILS % (AUTO) 0.7 % (0-2); EOSINOPHILS % (AUTO) 5.8 % (0-6); HEMATOCRIT 40.9 % (36.0-47.0); HEMOGLOBIN 13.7 g/dL (12.0-15.5); LYMPHOCYTES % (AUTO) 28.8 % (13-45); MEAN CORPUSCULAR HEMOGLOBIN 29.2 pg (27.0-33.4); MEAN CORPUSCULAR HGB CONC 33.6 g/dL (32.0-36.0); MEAN CORPUSCULAR VOLUME 87 fl (80-97); MONOCYTES % (AUTO) 12.5 % (3-13); PLATELET COUNT 221 10^3/uL (150-450); RED BLOOD COUNT 4.71 10^6/uL (3.72-5.28); RED CELL DISTRIBUTION WIDTH 14.9 % (11.5-14.0); SEGMENTED NEUTROPHILS % (AUTO) 52.2 % (42-78); TOTAL CELLS COUNTED % (AUTO) 100 %; WHITE BLOOD COUNT 6.6 10^3/uL (4.0-10.5)
[2018-03-20 12:58] LABS: ALANINE AMINOTRANSFERASE 294 U/L (9-52); ALBUMIN 3.8 g/dL (3.5-5.0); ALKALINE PHOSPHATASE 195 U/L (38-126); ANION GAP 6 (5-19); ASPARTATE AMINO TRANSFERASE 100 U/L (14-36); BILIRUBIN,DIRECT 1.5 mg/dL (0.0-0.4); BILIRUBIN,TOTAL 1.9 mg/dL (0.2-1.3); BLOOD UREA NITROGEN 8 mg/dL (7-20); CALCIUM 9.2 mg/dL (8.4-10.2); CARBON DIOXIDE 25 mmol/L (22-30); CHLORIDE 109 mmol/L (98-107); GLUCOSE 93 mg/dL (75-110); LIPASE 84.5 U/L (23-300); POTASSIUM 4.3 mmol/L (3.6-5.0); SODIUM 140.2 mmol/L (137-145); TOTAL PROTEIN 6.8 g/dL (6.3-8.2)
[2018-03-21] MEDS ORDERED: NORMAL SALINE 1000 ML 1,000 ML IV PRN (02:41)
[2018-03-21] MEDS ORDERED: MORPHINE SULFATE 10 MG/ML INJ IV ONE ×3 (02:48→11:57)
[2018-03-21] MEDS ORDERED: ONDANSETRON HCL INJ/PF 4 MG/2 ML SDV IV ONE (02:48)
[2018-03-21 07:16] LABS: ABSOLUTE BASOPHILS # (AUTO) 0.1 10^3/uL (0.0-0.2); ABSOLUTE EOSINOPHILS # (AUTO) 0.5 10^3/uL (0.0-0.6); ABSOLUTE LYMPHOCYTES (AUTO) 2.1 10^3/uL (0.5-4.7); ABSOLUTE MONOCYTES (AUTO) 0.7 10^3/uL (0.1-1.4); BASOPHILS % (AUTO) 1.2 % (0-2); EOSINOPHILS % (AUTO) 7.6 % (0-6); HEMATOCRIT 41.4 % (36.0-47.0); HEMOGLOBIN 14.2 g/dL (12.0-15.5); LYMPHOCYTES % (AUTO) 32.7 % (13-45); MEAN CORPUSCULAR HEMOGLOBIN 29.9 pg (27.0-33.4); MEAN CORPUSCULAR HGB CONC 34.3 g/dL (32.0-36.0); MEAN CORPUSCULAR VOLUME 87 fl (80-97); MONOCYTES % (AUTO) 11.5 % (3-13); PLATELET COUNT 253 10^3/uL (150-450); RED BLOOD COUNT 4.75 10^6/uL (3.72-5.28); RED CELL DISTRIBUTION WIDTH 14.9 % (11.5-14.0); TOTAL CELLS COUNTED % (AUTO) 100 %; WHITE BLOOD COUNT 6.3 10^3/uL (4.0-10.5)
[2018-03-21 07:32] LABS: ALANINE AMINOTRANSFERASE 254 U/L (9-52); ALKALINE PHOSPHATASE 201 U/L (38-126); ANION GAP 9 (5-19); ASPARTATE AMINO TRANSFERASE 76 U/L (14-36); BILIRUBIN,TOTAL 1.4 mg/dL (0.2-1.3); BLOOD UREA NITROGEN 7 mg/dL (7-20); CARBON DIOXIDE 20 mmol/L (22-30); CHLORIDE 110 mmol/L (98-107); GLUCOSE 94 mg/dL (75-110); LIPASE 495.2 U/L (23-300); POTASSIUM 4.4 mmol/L (3.6-5.0); SODIUM 138.7 mmol/L (137-145)
[2018-03-21] MEDS ORDERED: CEFTRIAXONE INJ 1000 MG VIAL ONE (10:59)
[2018-03-21] MEDS: CEFTRIAXONE SODIUM 1,000 MG in NORMAL SALINE 50 ML IV SCH (11:08)
[2018-03-21 12:05] VITALS: BP 115/53
== END 2018-03-21 13:54 | disposition short-term general hospital (02) ==
LOC: ER 01:26
DX: R74.0 Nonspecific elevation of levels of transaminase and lactic acid dehydrogenase [LDH] (principal); K83.1 Obstruction of bile duct; R10.11 Right upper quadrant pain; R79.89 Other specified abnormal findings of blood chemistry; F17.210 Nicotine dependence, cigarettes, uncomplicated
CPT/HCPCS: 99284; 36415; 87040; 87086; 82977; 83690; 85025; 81025; 87088; 80053; 81001; 87186; 80307; 85379; 76705; S0119; J2270 ×2; J0696 ×2; J2405

== ENCOUNTER 2019-05-05 23:57 | Emergency (ER) | payer MEDICAID ==
[2019-05-06 01:42] LABS: A TYPE INFLUENZA AG NEGATIVE (NEGATIVE); B INFLUENZA AG NEGATIVE (NEGATIVE)
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
[2019-05-06 08:00] VITALS: BP 91/63
== END 2019-05-06 08:00 | disposition home or self-care (01) ==
LOC: ER 23:57
DX: J06.9 Acute upper respiratory infection, unspecified (principal); B97.89 Other viral agents as the cause of diseases classified elsewhere; J02.9 Acute pharyngitis, unspecified; R51 Headache; R09.89 Other specified symptoms and signs involving the circulatory and respiratory systems; R09.81 Nasal congestion; R05 Cough; J34.89 Other specified disorders of nose and nasal sinuses; F17.200 Nicotine dependence, unspecified, uncomplicated
CPT/HCPCS: 87070; 87804; 87880; 99283

== ENCOUNTER → 2020-01-23 | Outpatient (CLI) | payer MEDICAID ==
[2020-01-23 10:56] LABS: ABSOLUTE BASOPHILS # (AUTO) 0.1 10^3/uL (0.0-0.2); ABSOLUTE EOSINOPHILS # (AUTO) 0.5 10^3/uL (0.0-0.6); ABSOLUTE LYMPHOCYTES (AUTO) 2.6 10^3/uL (0.5-4.7); ABSOLUTE MONOCYTES (AUTO) 0.7 10^3/uL (0.1-1.4); ABSOLUTE NEUT (AUTO) 5.4 10^3/uL (1.7-8.2); BASOPHILS % (AUTO) 1.1 % (0-2); EOSINOPHILS % (AUTO) 5.1 % (0-6); HEMATOCRIT 42.6 % (36.0-47.0); HEMOGLOBIN 14.7 g/dL (12.0-15.5); LYMPHOCYTES % (AUTO) 27.7 % (13-45); MEAN CORPUSCULAR HEMOGLOBIN 29.7 pg (27.0-33.4); MEAN CORPUSCULAR HGB CONC 34.4 g/dL (32.0-36.0); MEAN CORPUSCULAR VOLUME 86 fl (80-97); MONOCYTES % (AUTO) 7.7 % (3-13); PLATELET COUNT 285 10^3/uL (150-450); RED BLOOD COUNT 4.95 10^6/uL (3.72-5.28); RED CELL DISTRIBUTION WIDTH 14.7 % (11.5-14.0); SEGMENTED NEUTROPHILS % (AUTO) 58.4 % (42-78); TOTAL CELLS COUNTED % (AUTO) 100 %; WHITE BLOOD COUNT 9.2 10^3/uL (4.0-10.5)
[2020-01-23 11:25] LABS: ALBUMIN 4.5 g/dL (3.5-5.0); ALKALINE PHOSPHATASE 74 U/L (38-126); ANION GAP 5 (5-19); ASPARTATE AMINO TRANSFERASE 22 U/L (14-36); BILIRUBIN,TOTAL 0.5 mg/dL (0.2-1.3); BLOOD UREA NITROGEN 10 mg/dL (7-20); CALCIUM 9.6 mg/dL (8.4-10.2); CARBON DIOXIDE 24 mmol/L (22-30); CHLORIDE 106 mmol/L (98-107); GLUCOSE 89 mg/dL (75-110); POTASSIUM 4.4 mmol/L (3.6-5.0); TOTAL PROTEIN 7.7 g/dL (6.3-8.2)
[2020-01-23 11:27] LABS: LITHIUM < 0.2 mEq/L (0.6-1.2)
== END ==
LOC: OD 09:44
PROVIDERS: ATTEND Physician Assistant
DX: F31.9 Bipolar disorder, unspecified (principal); Z79.899 Other long term (current) drug therapy
CPT/HCPCS: 36415; 80053; 80178; 84443; 85025